=== PATIENT | female | born 1955 | race Caucasian/White ===

== ENCOUNTER 2016-07-19 10:59 | Emergency (ER) | payer OTHER ==
[~2016-07-19] VITALS: Ht 170.2 cm; Wt 84.2 kg
[~2016-07-19 10:59] MED LIST: Ativan PO; Lovenox SC; Percocet 5/325,Endoc PO; Vitamin B-12 PO; Vitamin D PO
[2016-07-19] MEDS ORDERED: CALTRATE 600 +1 EAC1 PO (11:16)
[2016-07-19] MEDS ORDERED: ASPIR-TRIN325 M1 PO (11:16)
[2016-07-19 12:24] LABS: HEMATOCRIT 40.7 % (36.0-46.0); MCH 31.2 PG (29.0-34.0); MCHC 34.4 G/DL (30.0-36.0); MCV 90.6 FL (83-99); MEAN PLAT.VOLUME 9.7 uM^3 (9.5-12.4); PLATELET COUNT 255 K/uL (156-360); RBC DIS.WIDTH-CV 12.6 % (11.8-14.6); RBC DIS.WIDTH-SD 41.7 % (39-53); RED BLOOD COUNT 4.49 M/uL (3.80-5.20); WHITE BLOOD COUNT 5.8 K/uL (4.1-10.2)
[2016-07-19 12:43] LABS: CHLORIDE 103 mEq/L (99-109); SODIUM 135 mEq/L (136-147)
[2016-07-19 12:46] LABS: GLUCOSE 106 mg/dL (70-99)
[2016-07-19 12:47] LABS: ANION GAP 12 MEQ/L (2-14); TOTAL BILIRUBIN 0.5 mg/dL (0.0-1.0)
[2016-07-19 12:49] LABS: ALKALINE PHOSPHATASE 74 IU/L (3-129); GFR ESTIMATE (CALCULATED) > 59 mL/min/
[2016-07-19 12:50] LABS: UREA NITROGEN (BUN) 8 mg/dL (9-23)
[2016-07-19 12:53] LABS: LIPASE 25 U/L (1.0-51.0); TROP-I INTERPRETATION NEGATIVE; TROPONIN-I < 0.01 ng/mL (0.0-0.30)
[2016-07-19 13:10] LABS: ADD MIUA? YES; BILIRUBIN NEGATIVE; BLOOD NEGATIVE; COLOR YELLOW ((YELLOW)); GLUCOSE (STRIP) NEGATIVE; KETONES 5; LEUKOCYTES TRACE; NITRITE NEGATIVE; PROTEIN (STRIP) 30; SPECIFIC GRAVITY 1.018 (1.000-1.030); UROBILINOGEN 0.2 MG/DL (0.2-1.0)
[2016-07-19 13:37] LABS: BACTERIA RARE /HPF; CALCIUM OXALATE CRYSTALS 1+ /HPF; EPITHELIAL CELLS RARE /HPF; HYALINE CASTS 0-5 /LPF; MUCUS 1+ /LPF; RED BLOOD CELLS 0-5 /HPF (0-5); RENAL EPITHELIAL CELLS RARE /HPF; URIC ACID CRYSTALS 1+ /HPF; WHITE BLOOD CELLS 0-5 /HPF (0-5)
[2016-07-19 14:20] LABS: INFLUENZA A VIRAL ANTIGEN NEGATIVE; INFLUENZA B VIRAL ANTIGEN NEGATIVE
[2016-07-19 14:57] VITALS: BP 110/65
== END 2016-07-19 15:04 | disposition home or self-care (01) ==
LOC: EME 10:59
PROVIDERS: Nurse Practitioner Family
DX: I95.9 Hypotension, unspecified (principal); B34.9 Viral infection, unspecified; Z85.3 Personal history of malignant neoplasm of breast; Z87.891 Personal history of nicotine dependence
CPT/HCPCS: 71020; 80053; 81003; 83605; 83690; 84484; 85027; 87040; 87502; 93005; 99281; 99285; J1885; J7030